=== PATIENT | female | born 1985 | race Two or more races ===

== ENCOUNTER 2016-09-30 15:29 | Emergency (ER) | payer OTHER ==
[2016-09-30 15:55] VITALS: BP 126/87; PULSE 81; RESP 16; TEMP 98.2; O2SAT 98
--- NOTE | 2016-09-30 16:00 | UCPHY ---
H & P Time Seen by Provider: 09/30/16 15:43 Patient Type: Established HPI/ROS: This patient has a cough for 1/2 weeks. She reports a feeling of chest congestion associated with her symptoms. She has partial improvement from her albuterol inhaler with spacer she uses for her mild asthma. However she does not feel she is improving infected feels like the frequency the cough is increasing and she is having difficulty sleeping due to frequent awakening from the cough. ROS: No fevers or chills. No other constitutional symptoms HEENT: No headache. She has mild nasal congestion but no facial pressure. No ear complaints or throat complaints. Pulmonary: No pleuritic chest pain. No chest pain at rest. Mild tightness feels like bronchial discomfort to her when she coughs or takes a deep breath. No respiratory distress. Cardiovascular: No lightheadedness. No leg swelling. 7 point ROS is otherwise negative. Past Medical/Surgical History: Mild asthma. No visits to the emergency department the last 6 months for asthma. Smoking Status: Never smoked Physical Exam: Physical Exam Vital signs are normal. General: No acute distress HEENT: Nose: Clear discharge. No sinus tenderness to percussion. Oropharynx is clear with no dysphonia or stridor. Ears: Clear bilaterally Eyes: Pupils equal and react to light. Extraocular motions are intact. Lungs: Rhonchi at right-sided more than left. No rales. Mild expiratory wheeze. No respiratory distress. Cardiac: Regular rate and rhythm with no murmur gallop rub. No leg swelling. Skin: No rash or pallor. Neuro: Alert Initial differential diagnosis: Viral bronchitis versus bacterial bronchitisAsthma-mild exacerbation versus mild intermittent Constitutional: Initial Vital Signs Temperature (C) 36.8 C 09/30/16 15:38 Heart Rate 81 09/30/16 15:38 Respiratory Rate 16 09/30/16 15:38 Blood Pressure 126/87 H 09/30/16 15:38 O2 Sat (%) 98 09/30/16 15:38 O2 Delivery Mode Room Air Allergies/Adverse Reactions: Penicillins Allergy (Verified 09/30/16 15:50) Home Medications: Medication Instructions Recorded Albuterol Hfa Anes Only 09/30/16 Albuterol Hfa Anes Only [Proair 2 puffs IH Q4 PRN #1 mdi 01/19/17 Hfa Icu (*)] Azithromycin [Zithromax] 250 mg PO DAILY #6 tab 09/30/16 Fluticasone Hfa 220 Mcg [Flovent 2 puffs IH DAILY #1 mdi 09/30/16 220 MCG Hfa MDI (*)] Guaifenesin/Codeine Phosphate 5 - 10 ml PO Q6 PRN #120 ml 09/30/16 [Guaifenesin-Codeine Liquid] MDM/Departure - [facility] ED Course/Re-evaluation: Patient appears clinically well with normal vital signs. Given the duration of her symptoms and clinical exam findings she may have atypical bacterial cause of bronchitis. I counseled regarding this. - Depart Clinical Impression: Acute bronchitis Qualifiers: Bronchitis organism: unspecified organism Qualifier Code: (J20.9) Acute bronchitis, unspecified Asthma Qualifiers: Asthma severity: mild intermittent Asthma complication type: uncomplicated Qualifier Code: (J45.20) Mild intermittent asthma, uncomplicated Instructions: Acute Bronchitis (ED), Asthma (ED) Additional Instructions: Diagnoses: 1. Bronchitis 2. Asthma Plan: Humidifier Zithromax antibiotic Albuterol inhaler with spacer-2 puffs per 4 hours as needed for cough, wheeze or shortness of breath Flovent steroid inhaler in addition Finally guaifenesin with codeine if needed for cough prevents sleep. Return for any significant worsening despite the treatment plan Follow up with primary care physician for any ongoing symptoms despite the treatment plan. Prescriptions: Fluticasone Hfa 220 Mcg [Flovent 220 MCG Hfa MDI (*)] 2 puffs IH DAILY #1 mdi Guaifenesin/Codeine Phosphate [Guaifenesin-Codeine Liquid] 5 - 10 ml PO Q6 PRN # 120 ml PRN Reason: Cough Albuterol Hfa Anes Only [Proair Hfa Icu (*)] 2 puffs IH Q4 PRN #1 mdi PRN Reason: Wheezing Azithromycin [Zithromax] 250 mg PO DAILY #6 tab Referrals: [place],. [Primary Care Provider] - As per Instructions - PQRS PQRS Measurement: NA
== END 2016-09-30 16:12 | disposition home or self-care (01) ==
LOC: CED 15:29
DX: J20.9 Acute bronchitis, unspecified (principal); J45.909 Unspecified asthma, uncomplicated; Z79.51 Long term (current) use of inhaled steroids
CPT/HCPCS: 99214-PO; G0463-PO